=== PATIENT | male | born 1945 | race Caucasian/White ===

== ENCOUNTER → 2025-05-30 07:12 | Outpatient (REF) | payer MEDICARE, SELFPAY | LOC: HWRAD 07:12 | PROVIDERS: ATTENDING PHYSICIAN Family Medicine | DX: K80.80 Other cholelithiasis without obstruction (principal) | CPT/HCPCS: 76700 ==

== ENCOUNTER → 2025-07-05 09:12 | Outpatient (REF) | payer MEDICARE, SELFPAY | LOC: RAD 09:12 | PROVIDERS: ATTENDING PHYSICIAN Family Medicine | DX: K80.80 Other cholelithiasis without obstruction (principal) | CPT/HCPCS: 78226; A9537 ==